=== PATIENT | female | born 1995 | race American Indian/Alaskan Native ===

== ENCOUNTER 2019-01-02 18:35 | Emergency (ER) | payer SELFPAY ==
--- NOTE | 2019-01-02 20:00 | Emergency Department Report ---
ED Female HPI - General Chief complaint: Urogenital-Female Stated complaint: BV SYMPTOMS Time Seen by Provider: 01/02/19 19:18 Source: patient Mode of arrival: Ambulatory Limitations: No Limitations - History of Present Illness Initial comments: Pt is a 23 yo female who presents to the ED with c/o vaginal discharge that began three days ago. she describes it as galdamez/yellow in color. she states she had unprotected intercourse last week. She has associated foul odor of her discharge, vaginal itching, dysuria, and lesions present on the vagina. she states the lesions are irritating and burn when she urinates. she denies any abd pain, N/V/D, or fever. she states her LNMP was on 12/28/18. STD hx: G/C in 2012 which she states she received tx for. - Related Data Previous Rx's Medication Instructions Recorded Last Taken Type Acyclovir [Zovirax Tab] 400 mg PO TID 7 Days #21 tab 01/02/19 Unknown Rx Allergies Allergy/AdvReac Type Severity Reaction Status Date / Time polyethylene glycol 3350 Allergy Hives Verified 01/02/19 18:36 [From Miralax] ED Review of Systems ROS: Stated complaint: BV SYMPTOMS Other details as noted in HPI Comment: All other systems reviewed and negative ED Past Medical Hx - Past Medical History Previous Medical History?: No - Surgical History Past Surgical History?: Yes Additional Surgical History: left foot surgery- reconstruction. D&C 2013 - Medications Home Medications: Home Medications Medication Instructions Recorded Confirmed Last Taken Type Acyclovir [Zovirax Tab] 400 mg PO TID 7 Days #21 tab 01/02/19 Unknown Rx ED Physical Exam - General Limitations: No Limitations General appearance: alert, in no apparent distress - Head Head exam: Present: atraumatic, normocephalic - Eye Eye exam: Present: normal appearance, PERRL - ENT ENT exam: Present: mucous membranes moist - Respiratory Respiratory exam: Present: normal lung sounds bilaterally. Absent: respiratory distress, wheezes, rales, rhonchi, stridor, chest wall tenderness, accessory muscle use, decreased breath sounds, prolonged expiratory - Cardiovascular Cardiovascular Exam: Present: regular rate, normal rhythm, normal heart sounds. Absent: systolic murmur, diastolic murmur, rubs, gallop - GI/Abdominal GI/Abdominal exam: Present: soft, normal bowel sounds. Absent: distended, tenderness, guarding, rebound, rigid - External exam: Present: lesions (small vesicles with surrounding erytehma around the vesicles present on the labia and around the rectum). Absent: swelling, lacerations, ecchymosis, bleeding Speculum exam: Present: vaginal discharge (white vaginal discharge ), cervical discharge (white discharge present at the cervical os), other (resident care spec: jessie, RN). Absent: vaginal bleeding, foreign body, tissue Bi-manual exam: Absent: cervical motion tendernes, adnexal tenderness, adnexal mass, uterine enlargement, uterine tenderness - Back Exam Back exam: Absent: CVA tenderness (R), CVA tenderness (L) - Neurological Exam Neurological exam: Present: alert, oriented X3 - Psychiatric Psychiatric exam: Present: normal affect, normal mood - Skin Skin exam: Present: warm, dry, intact ED Course Vital Signs 01/02/19 21:41 Temperature 98.7 F Pulse Rate 80 Respiratory 18 Rate Blood Pressure 117/71 O2 Sat by Pulse 98 Oximetry ED Medical Decision Making - Medical Decision Making Pt is a 23 yo female who presents to the ED with c/o vaginal discharge that began three days ago. she describes it as galdamez/yellow in color. she states she had unprotected intercourse last week. She has associated foul odor of her discharge, vaginal itching, dysuria, and lesions present on the vagina. she states the lesions are irritating and burn when she urinates. she denies any abd pain, N/V/D, or fever. she states her LNMP was on 12/28/18. STD hx: G/C in 2012 which she states she received tx for. vitals are normal, no abd tenderness or CMT on exam. UA is normal. urine is normal. wet prep is negative. pt swabbed for G/C and treated with ceftriaxone and azithromycin. discussed to follow up with medical records in 1 week for her results. on examination pt has small vesicles consistent with herpes virus infection. pt will be given acyclovir. discussed with pt to please be seen at PCP, [facility], or health department for further testing including but not limited to HSV, syphilis, HIV. advised to have partner tested and treated as well. return to the emergency room for any new or worsening symptoms. - Differential Diagnosis BV, STD, yeast, vaginitis Critical care attestation.: If time is entered above; I have spent that time in minutes in the direct care of this critically ill patient, excluding procedure time. ED Disposition Clinical Impression: Vaginal discharge Herpes genitalis Qualifiers: Herpes simplex infection site: unspecified Qualified Code(s): A60.00 - Herpesviral infection of urogenital system, unspecified Disposition: TO HOME OR SELFCARE Is pt being admited?: No Does the pt Need Aspirin: No Condition: Stable Instructions: Genital Herpes Simplex (ED), Sexually Transmitted Diseases (ED), Safe Sex (ED) Additional Instructions: please take all medication as prescribed. please be seen at primary care, [facility], or health department for further testing including but not limited to HSV, syphilis, HIV. please have partner tested and treated as well. may check back with medical records in 1 week for results of test. return to the emergency room for any new or worsening symptoms. Prescriptions: Acyclovir [Zovirax Tab] 400 mg PO TID 7 Days #21 tab Referrals: [facility] [Provider Group] - 2-3 Days [facility] [Outside] - 2-3 Days Time of Disposition: 21:23 Print Language: GREENLANDIC
[2019-01-02 20:06] LABS: HCG Qualitative,Urine Negative (Negative)
[2019-01-02 20:08] LABS: Bilirubin,Urine NEG (Negative); Blood,Urine NEG (Negative); Color,Urine Yellow (Yellow); Mucus,Urine FEW /HPF; Protein,Urine <15 mg/dL mg/dL (Negative)
[2019-01-02] MEDS ORDERED: ZITHROMAX PO ONE (20:40)
[2019-01-02] MEDS ORDERED: ROCEPHIN IM ONE (20:40)
[2019-01-02] MEDS ORDERED: XYLOCAINE 1% MPF 5 mL INFILTRATI ONE (20:40)
[2019-01-02 22:07] VITALS: BP 117/71
== END 2019-01-02 21:45 | disposition home or self-care (01) ==
LOC: ED 18:35
DX: N89.8 Other specified noninflammatory disorders of vagina (principal); A60.00 Herpesviral infection of urogenital system, unspecified; Z88.8 Allergy status to other drugs, medicaments and biological substances
CPT/HCPCS: 81001; 81025; 87210; 87591; 96372; 99284; J0696

== ENCOUNTER 2019-08-02 17:03 | Emergency (ER) | payer OTHER ==
--- NOTE | 2019-08-02 17:30 | Emergency Department Report ---
Blank Doc - Documentation Documentation: 24-year-old female that presents with dsyruai and hematuria with some pelvic p ain. This initial assessment/diagnostic orders/clinical plan/treatment(s) is/are subject to change based on patient's health status, clinical progression and re- assessment by fellow clinical providers in the ED. Further treatment and workup at subsequent clinical providers discretion. Patient/guardians urged not to elope from the ED as their condition may be serious if not clinically assessed a nd managed. Initial orders include: 1- Patient sent to [facility] for further evaluation and treatment 2- UA
[2019-08-02 17:31] VITALS: BP 117/31
[2019-08-02 20:30] LABS: HCG Qualitative,Urine Negative (Negative)
[2019-08-02 20:39] LABS: Bacteria,Urine 3+ /HPF (Negative); Bilirubin,Urine NEG (Negative); Blood,Urine LG (Negative); Color,Urine Amber (Yellow); Mucus,Urine 3+ /HPF; Protein,Urine >500 mg/dL (Negative); RBC,Urine > 182.0 /HPF (0.0-6.0); Urobilinogen,Urine < 2.0 mg/dL (<2.0)
[2019-08-02 20:40] LABS: WBC,Urine > 182.0 /HPF (0.0-6.0)
--- NOTE | 2019-08-02 20:42 | Emergency Department Report ---
ED Female HPI - General Chief complaint: Urogenital-Female Stated complaint: POSS UTI Time Seen by Provider: 08/02/19 17:29 Source: patient Mode of arrival: Ambulatory Limitations: No Limitations - History of Present Illness Initial comments: 24-year-old female that presents with urinary frequency and urgency and hematuria with some pelvic spasm when she urinates times 2 days Patient denies any vaginal discharge. Patient denies any burning with urination. Has some nausea no vomiting no fever She's last menstrual. 07/11/2019 she is 3 p jose 1. Complaint: other (urinary frequency and urgency) Onset/Timin -: days(s) Location: suprapubic Severity scale (0 -10): 0 Consistency: intermittent Improves with: none Worsens with: urination Are you Now?: No Last Menstrual Period: 07/11/19 EDC: 04/16/20 Associated Symptoms: nausea/vomiting (no vomiting), hematuria. denies: vaginal discharge, vaginal bleeding, abdominal pain, fever/chills, dysuria - Related Data Sexually active: Yes : 3 Para: 1 Previous Rx's Medication Instructions Recorded Last Taken Type Acyclovir [Zovirax Tab] 400 mg PO TID 7 Days #21 tab 01/02/19 Unknown Rx Nitrofurantoin Barnwell/M-Cryst 100 mg PO Q12HR 10 Days #20 capsule 08/02/19 Unknown Rx [Macrobid CAP] Allergies Allergy/AdvReac Type Severity Reaction Status Date / Time polyethylene glycol 3350 Allergy Hives Verified 01/02/19 18:36 [From Miralax] ED Review of Systems ROS: Stated complaint: POSS UTI Other details as noted in HPI Comment: All other systems reviewed and negative ED Past Medical Hx - Past Medical History Previous Medical History?: No - Surgical History Past Surgical History?: Yes Additional Surgical History: left foot surgery- reconstruction. D&C 2013 - Social History Smoking Status: Current Some Day Smoker Substance Use Type: Alcohol - Medications Home Medications: Home Medications Medication Instructions Recorded Confirmed Last Taken Type Acyclovir [Zovirax Tab] 400 mg PO TID 7 Days #21 tab 01/02/19 Unknown Rx Nitrofurantoin Barnwell/M-Cryst 100 mg PO Q12HR 10 Days #20 capsule 08/02/19 Unknown Rx [Macrobid CAP] ED Physical Exam - General Limitations: No Limitations General appearance: alert, in no apparent distress - Head Head exam: Present: atraumatic, normocephalic - Eye Eye exam: Present: normal appearance - ENT ENT exam: Present: mucous membranes moist - GI/Abdominal GI/Abdominal exam: Present: soft, normal bowel sounds. Absent: distended, tenderness, guarding - Neurological Exam Neurological exam: Present: alert, oriented X3, normal gait - Psychiatric Psychiatric exam: Present: normal affect, normal mood - Skin Skin exam: Present: warm, dry, intact, normal color. Absent: rash ED Course Vital Signs 08/02/19 08/02/19 17:28 17:30 Temperature 98.6 F 98.6 F Pulse Rate 79 84 Respiratory 16 16 Rate Blood Pressure 117/31 117/31 O2 Sat by Pulse 99 99 Oximetry ED Medical Decision Making - Medical Decision Making 24-year-old female that presents with urinary frequency and urgency and hematuria with some pelvic spasm when she urinates times 2 days Patient denies any vaginal discharge. Patient denies any burning with urination. Has some nausea no vomiting no fever She's last menstrual. 07/11/2019 she is 3 para 1. Urinalysis shows greater than 182 WBCs and greater than 182 RBCs with positive nitrates. She'll be treated for urinary tract infection place her on Macrobid 100 mg by mouth twice a day for 10 days. Critical care attestation.: If time is entered above; I have spent that time in minutes in the direct care of this critically ill patient, excluding procedure time. ED Disposition Clinical Impression: UTI (urinary tract infection) Qualifiers: Urinary tract infection type: site unspecified Hematuria presence: with hematuria Qualified Code(s): N39.0 - Urinary tract infection, site not specified; R31.9 - Hematuria, unspecified Disposition: DC-01 TO HOME OR SELFCARE Is pt being admited?: No Does the pt Need Aspirin: No Condition: Stable Instructions: Urinary Tract Infection in Women (ED) Additional Instructions: Complete antibiotics as prescribed. Increase fluid intake. Be sure to void after intercourse area and follow-up with [facility] if symptoms persist or gets worse. Prescriptions: Nitrofurantoin Barnwell/M-Cryst [Macrobid CAP] 100 mg PO Q12HR 10 Days #20 capsule Referrals: [facility] [Provider Group] - 3-5 Days [facility] [Provider [facility]] - 3-5 Days [facility] [Primary Care Provider] - 3-5 Days FAWAD MILLER MD [Staff Physician] - 3-5 Days Forms: Work/School Release Form(ED)
== END 2019-08-02 21:00 | disposition home or self-care (01) ==
LOC: ED 17:03
DX: N39.0 Urinary tract infection, site not specified (principal); F17.200 Nicotine dependence, unspecified, uncomplicated
CPT/HCPCS: 81001; 81025; 87076; 87086; 87186; 99283